=== PATIENT | male | born 1940 | race Caucasian/White ===

== ENCOUNTER 2016-09-17 04:14 | Inpatient (IN) | payer OTHER ==
[~2016-09-17] VITALS: Ht 170.2 cm; Wt 68.0 kg
[~2016-09-17 04:14] MED LIST: ALDACTONE25 MG PO; ALLOPURINOL100 PO; APAP/HYDROCODON1 T13 PO; ASPIRIN; BUFFERED ASPIR325 M1 PO; CARVEDILOL12.5 MG PO; COL100 PO; COREG12.5 MG PO; COZAAR100 MG PO; DIOHCT PO; DIOVAN40 MG PO; ECO81 PO; IPRATROPIUM BROM3 M2 HHN; L40 PO; LAC PO; LIPI20 PO; MEDDP PO; MIRUD PO; MUCINEX600 MG PO; ZOS3PM IV; ZYL100 PO
[2016-09-17 04:51] LABS: BASOPHIL % 1.6 % (0-2); PLATELET COUNT 246 x10^3mcL (130-400)
[2016-09-17 04:55] LABS: CALCIUM 8.5 mg/dL (8.5-10.1); CARBON DIOXIDE 22.9 mmol/L (21-32); CHLORIDE SERUM 105 mmol/L (98-107); CREATININE SERUM 1.6 mg/dL (0.7-1.3); GLUCOSE SERUM 247 mg/dL (74-106); POTASSIUM SERUM 3.9 mmol/L (3.5-5.1); RED CELL DISTRIBUTION WIDTH 15.2 % (11.5-14.5); SODIUM SERUM 141 mmol/L (136-145)
[2016-09-17 04:59] LABS: ALBUMIN 3.4 g/dL (3.4-5.0); ALKALINE PHOSPHATASE 85 U/L (46-116); ALT/SGPT 38 U/L (16-63); AST/SGOT 32 U/L (15-37); MAGNESIUM 2.1 mg/dL (1.8-2.4); TOTAL PROTEIN, SERUM 6.8 g/dL (6.4-8.2)
[2016-09-17 06:36] LABS: CHOLESTEROL/HDL RATIO 2.8
[2016-09-17 06:46] LABS: FREE T4 1.08 ng/dL (0.76-1.46); FREE THYROXINE INDEX 2.3 ug/dL (1.4-4.5); T4(THYROXINE) 7.4 ug/dL (4.7-13.3)
[2016-09-17 07:03] LABS: T3 TOTAL 1.03 ng/mL
[2016-09-17 10:10] VITALS: BP 142/82
[2016-09-17 12:55] VITALS: BP 156/63
[2016-09-17 13:55] VITALS: BP 110/67
[2016-09-17 15:22] LABS: microscopic required? NO
[2016-09-17 15:34] LABS: urine erythrocyte NEGATIVE (NEGATIVE)
[2016-09-17 18:14] VITALS: BP 119/71
[2016-09-17 21:26] VITALS: BP 107/83
[2016-09-18 05:41] VITALS: BP 130/56
[2016-09-18 06:33] LABS: BASOPHIL % 0.5 % (0-2); PLATELET COUNT 178 x10^3mcL (130-400)
[2016-09-18 06:35] LABS: CALCIUM 8.7 mg/dL (8.5-10.1); CARBON DIOXIDE 29.7 mmol/L (21-32); CHLORIDE SERUM 107 mmol/L (98-107); CREATININE SERUM 1.3 mg/dL (0.7-1.3); GLUCOSE SERUM 134 mg/dL (74-106); POTASSIUM SERUM 3.9 mmol/L (3.5-5.1); SODIUM SERUM 143 mmol/L (136-145)
[2016-09-18 06:51] LABS: RED CELL DISTRIBUTION WIDTH 14.8 % (11.5-14.5)
[2016-09-18 09:05] VITALS: Ht 170.2 cm; Wt 68.0 kg
[2016-09-18 10:26] VITALS: BP 144/67
[2016-09-18 14:54] VITALS: BP 125/56
[2016-09-18 18:18] VITALS: BP 142/64
[2016-09-18 22:13] VITALS: BP 115/53
[2016-09-19 06:27] VITALS: BP 121/55
[2016-09-19 06:27] LABS: BASOPHIL % 0.4 % (0-2); PLATELET COUNT 184 x10^3mcL (130-400)
[2016-09-19 06:41] LABS: RED CELL DISTRIBUTION WIDTH 15.6 % (11.5-14.5)
[2016-09-19 06:47] LABS: CALCIUM 8.5 mg/dL (8.5-10.1); CARBON DIOXIDE 28.9 mmol/L (21-32); CHLORIDE SERUM 107 mmol/L (98-107); CREATININE SERUM 1.2 mg/dL (0.7-1.3); GLUCOSE SERUM 133 mg/dL (74-106); SODIUM SERUM 141 mmol/L (136-145)
[2016-09-19 08:46] VITALS: BP 141/73
[2016-09-19 12:57] VITALS: BP 148/58
[2016-09-19] MEDS ORDERED: LEVAQUIN750 MG PO (15:53)
[2016-09-19] MEDS ORDERED: CLINDAMYCIN300 M1 PO (15:54)
[2016-09-19] MEDS ORDERED: LAC PO (15:55)
[2016-09-19 16:05] VITALS: BP 148/58
[2016-09-19 16:17] VITALS: BP 129/71
[2016-09-19 16:18] VITALS: BP 129/71
[2016-09-19] MEDS ORDERED: HIBICLENS118 ML TOP (17:14)
[2016-09-19] MEDS ORDERED: BACO TOP (17:14)
[2016-09-19] MEDS ORDERED: LASIX20 MG PO (17:15)
== END 2016-09-19 17:32 | disposition home or self-care (01) | DRG 291 ==
LOC: ED 04:14 → DU 05:28 → MU 09-19 12:22
PROVIDERS: Emergency Medicine; Family Medicine; ADMIT Family Medicine
PROC: 5A09457 Assistance with Respiratory Ventilation, 24-96 Consecutive Hours, Continuous Positive Airway Pressure (ICD-10-PCS; principal; 2016-09-17)
DX: I11.0 Hypertensive heart disease with heart failure (principal); J96.00 Acute respiratory failure, unspecified whether with hypoxia or hypercapnia; N17.0 Acute kidney failure with tubular necrosis; J69.0 Pneumonitis due to inhalation of food and vomit; I69.351 Hemiplegia and hemiparesis following cerebral infarction affecting right dominant side; I50.43 Acute on chronic combined systolic (congestive) and diastolic (congestive) heart failure; I25.10 Atherosclerotic heart disease of native coronary artery without angina pectoris; E03.9 Hypothyroidism, unspecified; M10.9 Gout, unspecified; J44.9 Chronic obstructive pulmonary disease, unspecified; Z53.29 Procedure and treatment not carried out because of patient's decision for other reasons; I25.2 Old myocardial infarction; Z95.1 Presence of aortocoronary bypass graft; Z87.891 Personal history of nicotine dependence; Z79.82 Long term (current) use of aspirin; Z79.899 Other long term (current) drug therapy; Z82.3 Family history of stroke; Z82.49 Family history of ischemic heart disease and other diseases of the circulatory system
CPT/HCPCS: 36600; 83880; 84439; J1644; J1940; J1956; J3490; J7030; J7620; Q0092

== ENCOUNTER 2016-12-28 04:42 | Inpatient (IN) | payer OTHER ==
[~2016-12-28] VITALS: Ht 170.2 cm; Wt 80.0 kg
[~2016-12-28 04:42] MED LIST changes: +BACO TOP; +CLINDAMYCIN300 M1 PO; +HIBICLENS118 ML TOP; +LASIX20 MG PO; +LEVAQUIN750 MG PO
[2016-12-28 05:25] LABS: BASOPHIL % 0.7 % (0-2); PLATELET COUNT 186 x10^3mcL (130-400)
[2016-12-28 05:32] LABS: CALCIUM 8.6 mg/dL (8.5-10.1); CARBON DIOXIDE 24.9 mmol/L (21-32); CHLORIDE SERUM 108 mmol/L (98-107); CREATININE SERUM 1.3 mg/dL (0.7-1.3); GLUCOSE SERUM 147 mg/dL (74-106); POTASSIUM SERUM 3.8 mmol/L (3.5-5.1); SODIUM SERUM 144 mmol/L (136-145)
[2016-12-28] MEDS ORDERED: LASIX40 MG PO (05:35)
[2016-12-28] MEDS ORDERED: CARVEDILOL12.5 M1 PO (05:36)
[2016-12-28 05:37] LABS: ALBUMIN 3.3 g/dL (3.4-5.0); ALKALINE PHOSPHATASE 81 U/L (46-116); ALT/SGPT 29 U/L (16-63); AST/SGOT 21 U/L (15-37); BILIRUBIN TOTAL 0.41 mg/dL (0.20-1.00); TOTAL PROTEIN, SERUM 6.4 g/dL (6.4-8.2)
[2016-12-28 05:48] LABS: CK-MB 1.8 ng/mL (0-3.6)
[2016-12-28 06:35] LABS: RED CELL DISTRIBUTION WIDTH 14.6 % (11.5-14.5)
[2016-12-28 08:19] VITALS: BP 149/70
[2016-12-28 08:55] VITALS: BP 149/70
[2016-12-28 12:31] LABS: CHOLESTEROL/HDL RATIO 2.9
[2016-12-28 12:36] LABS: FREE T4 1.18 ng/dL (0.76-1.46); FREE THYROXINE INDEX 3.1 ug/dL (1.4-4.5); T4(THYROXINE) 8.5 ug/dL (4.7-13.3)
[2016-12-28 13:06] LABS: T3 TOTAL 0.96 ng/mL
[2016-12-28 13:39] VITALS: BP 166/71
[2016-12-28 17:51] VITALS: BP 155/67
[2016-12-28 20:11] LABS: microscopic required? NO
[2016-12-28 20:18] LABS: urine erythrocyte NEGATIVE (NEGATIVE)
[2016-12-28 21:00] VITALS: BP 112/61
[2016-12-29 04:03] VITALS: BP 117/57
[2016-12-29 05:31] VITALS: BP 134/62
[2016-12-29 06:01] LABS: BASOPHIL % 0.3 % (0-2); PLATELET COUNT 185 x10^3mcL (130-400)
[2016-12-29 06:21] LABS: CALCIUM 8.5 mg/dL (8.5-10.1); CHLORIDE SERUM 107 mmol/L (98-107); CREATININE SERUM 1.3 mg/dL (0.7-1.3); GLUCOSE SERUM 134 mg/dL (74-106); PHOSPHOROUS 3.8 mg/dL (2.5-4.9); POTASSIUM SERUM 3.8 mmol/L (3.5-5.1); SODIUM SERUM 146 mmol/L (136-145)
[2016-12-29 06:33] LABS: RED CELL DISTRIBUTION WIDTH 14.6 % (11.5-14.5)
[2016-12-29 09:39] VITALS: BP 137/61
[2016-12-29 13:56] VITALS: BP 111/63
[2016-12-29 16:57] VITALS: BP 114/50
[2016-12-29] MEDS ORDERED: CLOPIDOGREL75 M1 PO (17:52)
[2016-12-29] MEDS ORDERED: ALLOPURINOL100 MG PO (18:04)
[2016-12-29 21:47] VITALS: BP 120/56
[2016-12-30 06:07] VITALS: BP 127/54
[2016-12-30 06:30] LABS: CALCIUM 8.6 mg/dL (8.5-10.1); CARBON DIOXIDE 27.8 mmol/L (21-32); CHLORIDE SERUM 106 mmol/L (98-107); CREATININE SERUM 1.3 mg/dL (0.7-1.3); GLUCOSE SERUM 131 mg/dL (74-106); SODIUM SERUM 144 mmol/L (136-145)
[2016-12-30 06:46] LABS: BASOPHIL % 0.5 % (0-2); PLATELET COUNT 185 x10^3mcL (130-400); RED CELL DISTRIBUTION WIDTH 14.3 % (11.5-14.5)
[2016-12-30 07:35] VITALS: BP 144/63
[2016-12-30 09:51] VITALS: BP 128/64
[2016-12-30 14:37] VITALS: BP 116/58
[2016-12-30 18:20] VITALS: BP 127/49
[2016-12-30 22:05] VITALS: BP 131/53
[2016-12-31 06:08] LABS: CALCIUM 8.6 mg/dL (8.5-10.1); CARBON DIOXIDE 29.7 mmol/L (21-32); CHLORIDE SERUM 106 mmol/L (98-107); CREATININE SERUM 1.4 mg/dL (0.7-1.3); GLUCOSE SERUM 131 mg/dL (74-106); POTASSIUM SERUM 4.7 mmol/L (3.5-5.1); SODIUM SERUM 144 mmol/L (136-145)
[2016-12-31 06:16] VITALS: BP 128/59
[2016-12-31] MEDS ORDERED: SPIRONOLACTONE25 MG PO (07:26)
[2016-12-31] MEDS ORDERED: AMIODARONE HCL200 MG PO (07:32)
[2016-12-31] MEDS ORDERED: LIPITOR80 MG PO (07:34)
[2016-12-31 09:58] VITALS: BP 125/80
[2016-12-31 12:58] VITALS: BP 125/80
[2016-12-31 13:31] VITALS: BP 102/54
[2016-12-31] MEDS ORDERED: ALDACTONE25 MG PO (14:24)
== END 2016-12-31 14:49 | disposition home or self-care (01) | DRG 291 ==
LOC: ED 04:42 → DU 07:06
PROVIDERS: Emergency Medicine; Internal Medicine Cardiovascular Disease; ADMIT Student in an Organized Health Care Education/Training Program
DX: I13.0 Hypertensive heart and chronic kidney disease with heart failure and stage 1 through stage 4 chronic kidney disease, or unspecified chronic kidney disease (principal); I50.43 Acute on chronic combined systolic (congestive) and diastolic (congestive) heart failure; N17.0 Acute kidney failure with tubular necrosis; D68.69 Other thrombophilia; E11.65 Type 2 diabetes mellitus with hyperglycemia; D64.9 Anemia, unspecified; M10.9 Gout, unspecified; J44.9 Chronic obstructive pulmonary disease, unspecified; I25.2 Old myocardial infarction; F17.200 Nicotine dependence, unspecified, uncomplicated; I25.10 Atherosclerotic heart disease of native coronary artery without angina pectoris; N18.3 Chronic kidney disease, stage 3 (moderate); Z95.1 Presence of aortocoronary bypass graft; Z86.73 Personal history of transient ischemic attack (TIA), and cerebral infarction without residual deficits; Z79.82 Long term (current) use of aspirin; Z79.899 Other long term (current) drug therapy; Z82.3 Family history of stroke; Z82.49 Family history of ischemic heart disease and other diseases of the circulatory system
CPT/HCPCS: 36600; 83880; 84439; J1940; J7030; J7620; J7626; Q0092

== ENCOUNTER 2017-12-24 14:58 | Inpatient (IN) | payer OTHER ==
[~2017-12-24] VITALS: Ht 170.2 cm; Wt 83.0 kg
[~2017-12-24 14:58] MED LIST changes: +ALLOPURINOL100 MG PO; +AMIODARONE HCL200 MG PO; +CARVEDILOL12.5 M1 PO; +CLOPIDOGREL75 M1 PO; +LASIX40 MG PO; +LIPITOR80 MG PO; +SPIRONOLACTONE25 MG PO
[2017-12-24 15:02] VITALS: Ht 170.2 cm; Wt 83.0 kg
[2017-12-24 15:50] LABS: BASOPHIL % 0.5 % (0-2); PLATELET COUNT 171 x10^3mcL (130-400); RED CELL DISTRIBUTION WIDTH 13.5 % (11.5-14.5)
[2017-12-24 16:13] LABS: CALCIUM 7.8 mg/dL (8.5-10.1); CARBON DIOXIDE 24.1 mmol/L (21-32); CHLORIDE SERUM 106 mmol/L (98-107); CREATININE SERUM 1.2 mg/dL (0.7-1.3); GLUCOSE SERUM 115 mg/dL (74-106); POTASSIUM SERUM 4.2 mmol/L (3.5-5.1); SODIUM SERUM 139 mmol/L (136-145)
[2017-12-24 16:18] LABS: ALBUMIN 3.4 g/dL (3.4-5.0); ALKALINE PHOSPHATASE 79 U/L (46-116); ALT/SGPT 28 U/L (16-63); AST/SGOT 32 U/L (15-37); BILIRUBIN TOTAL 0.3 mg/dL (0.20-1.00); TOTAL PROTEIN, SERUM 6.6 g/dL (6.4-8.2)
[2017-12-24] MEDS ORDERED: LIPI20 PO (16:32)
[2017-12-24] MEDS ORDERED: ENTRESTO1 TA2 PO (16:34)
[2017-12-24] MEDS ORDERED: DIOVAN40 MG PO (16:34)
[2017-12-24 16:53] LABS: UA SPECIFIC GRAVITY <=1.005 (1.005-1.035); microscopic required? YES; urine erythrocyte NEGATIVE (NEGATIVE)
[2017-12-24 17:07] VITALS: BP 116/72
[2017-12-24 18:13] VITALS: BP 116/72
[2017-12-24 21:16] VITALS: BP 150/71
[2017-12-25 03:39] LABS: BASOPHIL % 1.4 % (0-2); PLATELET COUNT 183 x10^3mcL (130-400); RED CELL DISTRIBUTION WIDTH 12.9 % (11.5-14.5)
[2017-12-25 03:51] LABS: ALKALINE PHOSPHATASE 72 U/L (46-116); ALT/SGPT 26 U/L (16-63); AST/SGOT 20 U/L (15-37); CALCIUM 8.5 mg/dL (8.5-10.1); CARBON DIOXIDE 27.1 mmol/L (21-32); CHLORIDE SERUM 106 mmol/L (98-107); CREATININE SERUM 1.5 mg/dL (0.7-1.3); GLUCOSE SERUM 110 mg/dL (74-106); POTASSIUM SERUM 3.9 mmol/L (3.5-5.1); SODIUM SERUM 141 mmol/L (136-145)
[2017-12-25 03:58] LABS: TOTAL PROTEIN, SERUM 5.9 g/dL (6.4-8.2)
[2017-12-25 05:07] VITALS: BP 124/55
[2017-12-25 09:57] VITALS: BP 142/68
[2017-12-25 13:04] VITALS: BP 127/53
[2017-12-25 17:25] VITALS: BP 130/55
[2017-12-25 21:37] VITALS: BP 134/68
[2017-12-26 04:45] VITALS: BP 101/58
[2017-12-26 07:19] LABS: BASOPHIL % 0.3 % (0-2); PLATELET COUNT 178 x10^3mcL (130-400); RED CELL DISTRIBUTION WIDTH 13.4 % (11.5-14.5)
[2017-12-26 07:25] LABS: CALCIUM 8.9 mg/dL (8.5-10.1); CARBON DIOXIDE 29.9 mmol/L (21-32); CHLORIDE SERUM 103 mmol/L (98-107); CREATININE SERUM 1.5 mg/dL (0.7-1.3); GLUCOSE SERUM 127 mg/dL (74-106); POTASSIUM SERUM 3.8 mmol/L (3.5-5.1); SODIUM SERUM 141 mmol/L (136-145)
[2017-12-26 08:34] VITALS: BP 112/60
[2017-12-26 10:29] VITALS: BP 112/60
[2017-12-26 11:39] VITALS: BP 128/63
[2017-12-26 12:51] VITALS: BP 118/70
== END 2017-12-26 12:59 | disposition home or self-care (01) | DRG 291 ==
LOC: ED 14:58 → DU 16:06
PROVIDERS: Emergency Medicine; Internal Medicine Pulmonary Disease
DX: I11.0 Hypertensive heart disease with heart failure (principal); J18.9 Pneumonia, unspecified organism; J44.0 Chronic obstructive pulmonary disease with (acute) lower respiratory infection; J44.1 Chronic obstructive pulmonary disease with (acute) exacerbation; I50.9 Heart failure, unspecified; Z95.1 Presence of aortocoronary bypass graft; I25.10 Atherosclerotic heart disease of native coronary artery without angina pectoris; I25.2 Old myocardial infarction; Z82.49 Family history of ischemic heart disease and other diseases of the circulatory system; Z82.3 Family history of stroke
CPT/HCPCS: 83880; 97535-GP; J1644; J1940; J2543; J7030; J7620; Q0092